=== PATIENT | male | born 1950 | race Caucasian/White ===

== ENCOUNTER 2023-10-18 02:20 | Emergency (ER) | payer MEDICARE ==
[2023-10-18] MEDS ORDERED: Bacitracin 1 PK ONE (03:56)
== END 2023-10-18 03:58 | disposition home or self-care (01) ==
LOC: CSHERS 02:20
DX: R55 Syncope and collapse (principal); S01.81XA Laceration without foreign body of other part of head, initial encounter; I10 Essential (primary) hypertension; E78.00 Pure hypercholesterolemia, unspecified; Z79.82 Long term (current) use of aspirin; Z79.899 Other long term (current) drug therapy; W18.00XA Striking against unspecified object with subsequent fall, initial encounter
CPT/HCPCS: 12013; 70450; 72125; 93005